=== PATIENT | female | born 1980 | race Asian ===

== ENCOUNTER 2019-09-10 18:12 | Emergency (ER) | payer BC ==
[~2019-09-10] VITALS: Ht 165.1 cm; Wt 80.7 kg
[2019-09-10] MEDS ORDERED: LORAZEPAM 2 MG/1 ML VIAL ONE (18:47)
[2019-09-10] MEDS ORDERED: LORAZEPAM 2 MG/1 ML VIAL IM ONE (19:00)
--- NOTE | 2019-09-10 19:10 | NUR ---
REPORT GIVE GIVEN TO INCOMING NURSE
--- NOTE | 2019-09-10 19:35 | NUR ---
Assumed care for patient at this time. AO x 4. Per patient her brought her to ER because of increased anxiety secondary to an argument. Pt verbalized that she had similar episodes in the past, but she is not in any medications for it. Pt feeling slightly weak and drowsy secondary to Ativan given. Pt says her feeling of anxiety has gone better since then. Placed on comfortable position. EKG started. Will continue to monitor.
--- NOTE | 2019-09-10 19:58 | NUR ---
Called Radiology for CXR.
[2019-09-10 20:05] LABS: BASOPHILS # (AUTO) 0.1 K/uL (0.0-8.0); BASOPHILS % (AUTO) 0.5 % (0.0-2.0); EOSINOPHILS % (AUTO) 0.3 % (0.0-7.0); HEMATOCRIT 38.8 % (31.2-41.9); HEMOGLOBIN 12.8 g/dL (10.9-14.3); LYMPHOCYTES # (AUTO) 2.3 K/uL (20.0-40.0); LYMPHOCYTES % (AUTO) 16.3 % (20.5-51.5); MEAN CORPUSCULAR HEMOGLOBIN 26.6 uug (24.7-32.8); MEAN CORPUSCULAR HGB CONC 33 g/dL (32.3-35.6); MEAN CORPUSCULAR VOLUME 80.6 fL (75.5-95.3); MONOCYTES # (AUTO) 0.8 K/uL (2.0-10.0); MONOCYTES % (AUTO) 6.1 % (0.0-11.0); NEUTROPHILS # (AUTO) 10.7 K/uL (1.8-8.9); NEUTROPHILS % (AUTO) 76.8 % (38.5-71.5); PLATELET COUNT (AUTO) 403 K/uL (179-408); RED BLOOD CELL COUNT(AUTO) 4.81 MIL/uL (3.63-4.92); WHITE BLOOD COUNT (AUTO) 13.9 K/uL (3.8-11.8)
[2019-09-10 20:14] LABS: CREATININE 0.9 mg/dL (0.6-1.3); POTASSIUM 3.4 mmol/L (3.5-5.1)
[2019-09-10 20:26] LABS: BILIRUBIN,DIRECT 0.1 mg/dL (0.0-0.2); BILIRUBIN,TOTAL 0.4 mg/dL (0.2-1.0); TOTAL PROTEIN, SERUM 7.8 g/dL (6.4-8.2)
[2019-09-10 20:27] LABS: THYROID STIMULATING HORMONE 1.778 mIU/mL (0.358-3.740)
[2019-09-10] MEDS ORDERED: POTASSIUM BICARBONATE/CIT AC 25 MEQ TABLET.EFF PO ONE (20:45)
[2019-09-10] MEDS ORDERED: POTASSIUM BICARBONATE/CIT AC 25 MEQ TABLET.EFF ONE (21:10)
--- NOTE | 2019-09-10 21:29 | NUR ---
notified that patient is ready for discharge. Patient cleared for discharged to home in stable condition. Written and verbal after care instructions given. Patient verbalizes understanding of instructions. Stressed follow up or return to ER for worsening s/s. All copies of labworks including EKG provided as instructed by ER MD, and f/up to Psych recommended. Waiting for to pick patient up.
--- NOTE | 2019-09-10 21:42 | NUR ---
Patient discharged via wheelchair to car. assisted to transfer patient to passenger seat. Verbalizes feeling better than earlier, still slight anxious. DC instructions re-emphasized to xavier who verbalized understanding. Fall and safety precautions also reviewed and able to teach back. Left via self transportation, stable condition.
[2019-09-10 21:49] VITALS: BP 140/75
== END 2019-09-10 21:50 | disposition home or self-care (01) ==
LOC: ER 18:16
DX: F45.8 Other somatoform disorders (principal); F41.0 Panic disorder [episodic paroxysmal anxiety]; R00.0 Tachycardia, unspecified; D72.829 Elevated white blood cell count, unspecified; R06.02 Shortness of breath
CPT/HCPCS: 36415; 71045; 80048; 80076; 83880; 84443; 84484; 84702; 85025; 85379; 93005 ×2; 96372; 99285; J2060; 70030-TC; A4663